=== PATIENT | male | born 1935 | race Two or more races ===

== ENCOUNTER → 2016-08-24 | Day surgery (SDC) | payer MEDICARE ==
[~2016-08-24] MED LIST: ACETAMINOPHEN 1000 MG/100 ML VIAL IV ONE; LACTATED RINGER'S 1000 ML INJ 1,000 ML ONE; LIDOCAINE 1%/EPINEPHrine 1:100,000 SOLN 50 ML VIAL ONE; PROPOFOL 200 MG/20 ML AMP IV ONE
--- NOTE | 2016-08-25 15:02 | MP ---
cc: HERNANDEZ AGEE M.D. DATE OF SURGERY: 08/24/2016 PREOPERATIVE DIAGNOSIS Subcutaneous mass right forearm. POSTOPERATIVE DIAGNOSIS Sebaceous cyst right forearm. PROCEDURE Excision of sebaceous right forearm. SURGEON Hernandez Agee MD HAND SCREEN PRINTER Dilan Paiz, MS3 ANESTHESIA Local with IV sedation. OPERATIVE PROCEDURE The patient was brought to the operating room and after satisfactory sedation was achieved, the right forearm was prepped and draped in the usual sterile fashion. 1% lidocaine with epinephrine was used to infiltrate the skin for local anesthesia. An elliptical skin incision was made to remove the excess skin and it was carried down sharply through the subcutaneous tissue. The sebaceous cyst was then identified and its contents expressed. The sac of the capsule of the sebaceous cyst was adherent to the surrounding tissues and was dissected free sharply then discarded. Hemostasis was assured as much as possible with the cautery. The skin was then closed with two interrupted mattress sutures of 4-0 Prolene. Steri-Strips were applied in between the sutures and a sterile compression dressing was then placed. The patient was then awakened and taken from the operating room, in satisfactory condition, having tolerated the procedure without problem. Estimated blood loss was nil. The instrument, sponge and needle counts were reported as being correct x2 at the end of procedure. MD BARBARA Ray/RAMON /11:15 AM /2:41 PM
== END | disposition home or self-care (01) ==
LOC: ESDC 07:34
PROVIDERS: ATTEND Surgery
DX: L72.3 Sebaceous cyst (principal)
CPT/HCPCS: 00400; 11601; J0131; J3010; J7120